=== PATIENT | female | born 1995 | race African-American/Black ===

== ENCOUNTER 2017-02-24 14:51 | Inpatient (IN) ==
[2017-02-24] MEDS: LACTATED RINGERS 1,000 ML IV SCH ×2 (15:24→20:20)
[2017-02-24] MEDS ORDERED: ONDANSETRON 4 MG/2 ML VIAL IV PRN (15:40)
[2017-02-24] MEDS ORDERED: DINOPROSTONE VAG GEL 10 MG SYRINGE VAG ONE (15:44)
[2017-02-24 15:57] LABS: Basophils % 0.2 % (0.0-0.8); Eosinophils % 0.3 % (0.00-10.9); Hematocrit 29.6 VOL% (35.7-47.0); Hemoglobin 9.9 GM/DL (12.0-16.0); Immature Granulocytes % 0.5 %; Immature Granulocytes Absolute 0.03 #; Lymphocytes # 1.2 10*3/uL (1.4-4.0); Mean Corpuscular HGB Conc 33.4 GM/DL (32-36); Mean Corpuscular Hemoglobin 29 PG (27-34); Mean Platelet Volume 11.9 FL (9.6-12.0); Monocytes # 0.8 10*3/uL (0.11-0.8); Monocytes % 13.3 % (1.7-12.7); Neutrophils # 3.9 10*3/uL (1.4-7.4); Neutrophils % 65.7 % (38.7-73.9); Platelet Count 178 T/CUMM (130-400); Red Blood Count 3.44 MC/CUMM (3.8-5.5); Red Cell Distribution Width 14.1 % (9.3-17.3)
[2017-02-24 16:20] LABS: Alanine Aminotransferase 17 U/L (13-56); Albumin 2.7 G/DL (3.4-5.0); Alkaline Phosphatase 148 U/L (45-117); Aspartate Amino Transferase 19 U/L (0-37); Bilirubin,Total < 0.39 MG/DL (0.2-1.0); Blood Urea Nitrogen 10 MG/DL (7-18); Calcium 7.9 MG/DL (8.5-10.1); Glucose 101 MG/DL (74-106); Osmolality,Calculated 273.7 MOS/KG (273-304); Potassium 3.6 MMOL/L (3.5-5.1); Sodium 138 MMOL/L (136-145); Total Protein 6.6 G/DL (6.4-8.3); Uric Acid 2.9 MG/DL (2.6-6.0)
[2017-02-24] MEDS ORDERED: LACTATED RINGERS 1,000 ML IV ONE (22:06)
[2017-02-24] MEDS ORDERED: hydrOXYzine HCL 25 MG/1 ML VIAL IM PRN (22:06)
[2017-02-24] MEDS ORDERED: FAMOTIDINE 20 MG/2 ML VIAL IV ONE (22:06)
[2017-02-24] MEDS ORDERED: diphenhydrAMINE 50 MG/1 ML VIAL IV PRN (22:06)
[2017-02-24] MEDS ORDERED: CITRIC ACID/SODIUM CITRATE 30 ML UDCUP PO ONE (22:06)
[2017-02-24] MEDS ORDERED: ePHEDrine 50 MG/ML AMP IV PRN (22:06)
[2017-02-24] MEDS ORDERED: PROMETHAZINE 25 MG/1 ML VIAL IM ONE (22:06)
[2017-02-24] MEDS ORDERED: fentaNYL 2 MCG/ROPIV 0.2% EPID 150 ML EPIDURAL SCH (22:30)
[2017-02-24] MEDS ORDERED: miSOPROStol 200 MCG TABLET ONE (22:52)
[2017-02-24] MEDS ORDERED: LIDOCAINE 1% 50 ML VIAL ONE (22:52)
[2017-02-24] MEDS ORDERED: OXYTOCIN/LR 20 UNIT/1,000 ML BAG IV ONE ×2 (22:53→23:13)
[2017-02-24 23:55] LABS: Cord Arterial Blood HCO3 16.2 MMOL/L
[2017-02-25] MEDS ORDERED: OXYTOCIN/LR 20 UNIT/1,000 ML BAG IV ONE (02:05)
[2017-02-25] MEDS ORDERED: ONDANSETRON 4 MG/2 ML VIAL IV PRN (02:05)
[2017-02-25] MEDS ORDERED: LANOLIN 50% CREAM 0.3 OZ TUBE TOP PRN (02:05)
[2017-02-25] MEDS ORDERED: DIPH/TET/ACEL PERT BOOSTER VACCINE 0.5 ML VIAL IM ONE (02:05)
[2017-02-25] MEDS ORDERED: RHO(D) IMMUNE GLOBULIN 300 MCG SYRINGE IM ONE (02:05)
[2017-02-25] MEDS ORDERED: HYDROCORTISONE 2.5% RECTAL CREAM 30 GM TUBE TOP PRN (02:05)
[2017-02-25] MEDS ORDERED: ACETAMINOPHEN 325 MG TABLET PO PRN (02:05)
[2017-02-25] MEDS ORDERED: oxyCODONE/ACETAMINOPHEN 5-325 MG TABLET PO PRN (02:05)
[2017-02-25] MEDS ORDERED: MEASLES/MUMPS/RUBELLA VACCINE 0.5 ML VIAL SUBCUT ONE (02:05)
[2017-02-25] MEDS ORDERED: WITCH HAZEL PADS 100/JAR TOP PRN (02:05)
[2017-02-25] MEDS ORDERED: BISACODYL 10 MG SUPP RECTAL PRN (02:05)
[2017-02-25] MEDS ORDERED: BENZOCAINE 20%/MENTHOL 0.5% SPRAY 56 GM CAN TOP PRN (02:05)
[2017-02-25] MEDS ORDERED: diphenhydrAMINE CAP 25 MG CAPSULE PO PRN (02:07)
[2017-02-25] MEDS ORDERED: diphenhydrAMINE CAP 25 MG CAPSULE ONE (02:11)
[2017-02-25] MEDS: IBUPROFEN 800 MG TABLET PO PRN ×2 (04:02→18:14)
[2017-02-25 05:38] LABS: Basophils % 0.1 % (0.0-0.8); Hematocrit 29.3 VOL% (35.7-47.0); Immature Granulocytes % 0.5 %; Immature Granulocytes Absolute 0.05 #; Lymphocytes # 1.1 10*3/uL (1.4-4.0); Lymphocytes % 10.4 % (21.3-54.2); Mean Corpuscular HGB Conc 34.1 GM/DL (32-36); Mean Corpuscular Hemoglobin 29 PG (27-34); Mean Corpuscular Volume 83.5 FL (87-102); Mean Platelet Volume 11.9 FL (9.6-12.0); Monocytes % 9.4 % (1.7-12.7); Neutrophils # 8.4 10*3/uL (1.4-7.4); Neutrophils % 79.6 % (38.7-73.9); Platelet Count 152 T/CUMM (130-400); Red Blood Count 3.51 MC/CUMM (3.8-5.5); Red Cell Distribution Width 14.1 % (9.3-17.3); White Blood Count 10.5 T/CUMM (4-12)
[2017-02-25] MEDS: oxyCODONE/ACETAMINOPHEN 5-325 MG TABLET PO PRN ×2 (09:22→18:16)
[2017-02-25] MEDS: DOCUSATE SODIUM 100 MG CAPSULE PO SCH ×2 (09:22→20:40)
[2017-02-26] MEDS: LACTATED RINGERS 1,000 ML IV SCH (03:38)
[2017-02-26] MEDS: IBUPROFEN 800 MG TABLET PO PRN (07:41)
[2017-02-26] MEDS: oxyCODONE/ACETAMINOPHEN 5-325 MG TABLET PO PRN (07:44)
[2017-02-26] MEDS: DOCUSATE SODIUM 100 MG CAPSULE PO SCH (09:21)
[2017-02-26 11:37] VITALS: BP 102/68
[2017-02-26] MEDS ORDERED: INFLUENZA VIRUS VACCINE 0.5 ML SYRINGE IM ONE ×2 (14:00→16:25)
== END 2017-02-26 14:45 | disposition home or self-care (01) | DRG 560 ==
LOC: N.LDOUT 14:51 → N.LD 14:54 → N.OB 02-25 02:04
PROVIDERS: ADMIT Obstetrics & Gynecology; ATTEND Obstetrics & Gynecology